=== PATIENT | male | born 1950 | race Caucasian/White ===

== ENCOUNTER → 2017-07-21 | Outpatient (CLI) | payer OTHER | END | disposition home or self-care (01) | LOC: LAB 23:04 | DX: Z02.83 Encounter for blood-alcohol and blood-drug test (principal) | CPT/HCPCS: 36415 ==

== ENCOUNTER → 2017-12-10 | Outpatient (CLI) | payer OTHER ==
--- NOTE | 2017-12-10 11:30 | CARD ---
MR#: [id number] Date of Study: 12/10/2017 Ordering Physician: MENG KENNEDY, Referring Physician: MENG KENNEDY, Tech: Giovanna Bauer APPROVED REPORT EXAM: Two-dimensional and M-mode echocardiogram with Doppler and color Doppler. Other Information Quality : AverageHR: 52bpm Rhythm : NSR INDICATION Murmur RISK FACTORS Hyperlipidemia Previous smoker 2D DIMENSIONS RVDd3.1 (2.9-3.5cm)Left Atrium(2D)3.7 (1.6-4.0cm) IVSd0.9 (0.7-1.1cm)Aortic Root(2D)3.9 (2.0-3.7cm) LVDd5.8 (3.9-5.9cm)LVOT Diameter2.4 (1.8-2.4cm) PWd1.2 (0.7-1.1cm)LVDs4.1 (2.5-4.0cm) FS (%) 29.0 %SV91.6 ml LVEF(%)55.0 (>50%) Aortic Valve AoV Peak Jagdish.121.2cm/sAoV VTI27.6cm AO Peak GR.4.8mmHgLVOT Peak Jagdish.91.3cm/s AO Mean GR.3mmHgAVA (VMAX)3.39cm2 Mitral Valve MV E Lhmqppkm75.0cm/sMV DECEL FQGA620pz MV A Entpqdzx98.4cm/sE/A Ratio0.8 Pulmonary Valve PV Peak Tknemtgr75.3cm/s Tricuspid Valve TR P. Kxhqhcwb361me/sTR Peak Gr.26mmHg Pulmonary Vein S1 Hgurgfqn77.1cm/sD2 Mhuxuypf01.5cm/s PVa doqfyiql411aohv LEFT VENTRICLE The left ventricle is normal size. There is normal left ventricular wall thickness. The left ventricu lar systolic function is normal and the ejection fraction is within normal range. The Ejection Fracti on is 50-55%. There is normal LV segmental wall motion. Transmitral Doppler flow pattern is Grade I-a bnormal relaxation pattern. RIGHT VENTRICLE The right ventricle is normal size. There is normal right ventricular wall thickness. The right ventr icular systolic function is normal. ATRIA The left atrium size is normal. The right atrium size is normal. The interatrial septum is intact wit h no evidence for an atrial septal defect or patent foramen ovale as noted on 2-D or Doppler imaging. AORTIC VALVE The aortic valve is normal in structure and function. Doppler and Color Flow revealed no significant aortic regurgitation. There is no significant aortic valvular stenosis. MITRAL VALVE The mitral valve is thickened but opens well. There is no mitral valve stenosis. Doppler and Color-fl ow revealed trace mitral regurgitation. TRICUSPID VALVE The tricuspid valve is normal in structure and function. Doppler and Color Flow revealed no tricuspid valve regurgitation noted. PULMONIC VALVE The pulmonic valve is not well visualized. Doppler and Color Flow revealed trace pulmonic valvular re gurgitation. GREAT VESSELS The aortic root is normal in size. Normal pulmonary venous flow (Doppler). The IVC is normal in size and collapses >50% with inspiration. PERICARDIAL EFFUSION There is no evidence of significant pericardial effusion. Critical Notification Critical Value: No <Conclusion> The left ventricle is normal size. The left ventricular systolic function is normal and the ejection fraction is within normal range. The Ejection Fraction is 50-55%. There is no significant aortic valvular stenosis. Doppler and Color Flow revealed no significant aortic regurgitation. Doppler and Color-flow revealed trace mitral regurgitation. Doppler and Color Flow revealed no tricuspid valve regurgitation noted. Signed by : Meng Kennedy MD Electronically Approved : 12/10/2017 11:29:23
== END | disposition home or self-care (01) ==
LOC: ECHO 10:08
PROVIDERS: ATTEND Internal Medicine Cardiovascular Disease
DX: Z01.818 Encounter for other preprocedural examination (principal); R01.1 Cardiac murmur, unspecified; E78.5 Hyperlipidemia, unspecified; Z87.891 Personal history of nicotine dependence
CPT/HCPCS: 93306

== ENCOUNTER → 2019-08-18 | Outpatient (CLI) | payer MEDICARE ==
[~2019-08-18] MED LIST: ASPI-630 PO; ATOR10TA60 PO; FAMO20TA5 PO
== END ==
LOC: LAB 14:03
PROVIDERS: ATTEND Surgery
DX: Z01.818 Encounter for other preprocedural examination (principal); Z11.59 Encounter for screening for other viral diseases; L72.3 Sebaceous cyst
CPT/HCPCS: 36415; U0003

== ENCOUNTER → 2019-08-24 | Day surgery (SDC) | payer MEDICARE ==
[~2019-08-24] MED LIST changes: +LIDOCAINE 1%/EPI 1:100,000 20 ML VIAL. INJ ONE
[2019-08-24 08:23] VITALS: BP 127/79
--- NOTE | 2019-08-24 09:30 | PDOC4 ---
Operative Note Operative Note Date: 08/24/2019 at 9:22 AM Preoperative diagnosis: Subcutaneous mass of the back x3 Postoperative diagnosis: Same Procedure: Excision of masses Surgeon: Frandy Specimen: Masses of the back x3 Dictation: Patient is a 68-year-old male who is had numerous sebaceous cyst removed off of his back he comes in today with 3 that are bothering him that are getting larger and sometimes painful. All of these are about 2 x 2 cm one in the center mid back one in the mid right back and one in the upper right back. Procedure of excision was explained to the patient detail was benefits were also discussed including bleeding infection alternatives to this procedure also discussed with the patient who seemed to understand and gave both verbal and written consent to have the procedure performed. Patient was placed in a sitting position with a table to lean on his back was prepped and draped usual sterile fashion using ChloraPrep the first mass was injected with 1% lidocaine with epinephrine elliptical incision was made is carried down through the subcutaneous tissue excising the mass which again was about 2 x 2 cm the mass was sent for pathology the wound was closed in a single layer of 4-0 subcuticular Monocryl Shira mass was excised in a similar fashion and as well as the third mass again both of these masses were 2 x 2 cm and the wounds were closed with a running 4-0 subcuticular Monocryl. Mastisol Steri-Strips and island dressings were applied. Patient tolerated procedure well was discharged home in stable condition all sponge instrument needle counts listed as correct estimated blood loss 10 mL JEANMARIE RIZO MD Aug 24, 2019 09:30
--- NOTE | 2019-08-24 09:32 | DISCH ---
DISCHARGE INSTRUCTIONS Condition on Discharge Condition on Discharge: Stable Activity After Discharge Activity Instructions for Disc: No restrictions Other activity instructions: May shower in 24 hours Diet after Discharge Diet after Discharge: Regular Wound Incision Care Other wound/incision instructi: May shower in 24 hours Contacting the after DC Call your doctor for: If your condition worsens Follow-Up Follow up with: Dr. Rioz in 2 weeks JEANMARIE RIZO MD Aug 24, 2019 09:32
--- NOTE | 2019-08-25 18:06 | PATHOLOGY ---
[facility] Accession Number: [id number] . 01 Material submitted: . PART A: back - CENTER BACK PART B: back - RIGHT BACK. Modifiers: right PART C: back - UPPER BACK. Modifiers: upper . 01 Clinical history: . Back cyst x3 . 02 Diagnosis: A. Skin and subcutaneous tissue, center back: - Epidermal inclusion cyst. . B. Skin and subcutaneous tissue, right back: - Epidermal inclusion cyst. . C. Skin and subcutaneous tissue, upper back: - Epidermal inclusion cyst. . ([facility]:mm; 08/25/2019) [facility] 08/25/2019 1552 Local . 02 Comment: There is no evidence of malignancy. . ([facility]:mml; 08/25/2019) . 02 Electronically signed: . Theo Carter MD, Pathologist NPI- [id number] . 01 Gross description: . A. Received in formalin labeled "Balbina Knott, center back" is an unoriented ellipse of renner-white skin measuring 3.2 x by 1.4 x 1.3 cm. The specimen is sectioned to reveal two renner-white sebaceous cysts measuring 0.5 and 1.0 cm in greatest dimension. Social Contact Worker sections are submitted in A1. . B. Received in formalin labeled "Ashely Knotte, right back" is an unoriented ellipse of renner-white skin and underlying soft tissue measuring entirely 2.7 x 2.1 x 2.0 cm. The deep surface displays a previously opened renner-white cystic structure measuring 1.5 cm in greatest dimension. The skin ellipse measures 2.7 x 0.8 x 0.4 cm. Upon sectioning, the cyst contains renner-white sebaceous material. Social Contact Worker sections are submitted in cassette B1. . C. Received in formalin labeled "Balbina Knott, upper back" is a fragmented renner-white cystic structure received in two pieces, measuring entirely 2.6 x 2.2 x 1.5 cm. One of the pieces displays an attached renner-white skin ellipse measuring 2.2 x 0.8 x 0.4 cm. Upon sectioning, the cyst contains renner-white sebaceous material. Social Contact Worker sections are submitted in cassette C1. ([facility] [place]; 08/24/2019) [facility] 08/24/2019 1715 Local . 02 Pathologist provided ICD-10: L72.0 . 02 CPT . 592238, [id number], [id number] Specimen Comment: A courtesy copy of this report has been sent to [phone], [phone] Specimen Comment: [id number] Specimen Comment: Report sent to / DR VARGAS Performed at: 01 [facility] [address], [place] [id number] MD Johnathon Cherry MD Phone: [phone] Performed at: 02 [facility] [address] [place], [place] [id number] MD Theo Carter MD Phone: [phone]
== END | disposition home or self-care (01) ==
LOC: SURG 07:57
PROVIDERS: ATTEND Surgery
DX: L72.0 Epidermal cyst (principal); Z79.82 Long term (current) use of aspirin; Z79.899 Other long term (current) drug therapy
CPT/HCPCS: 11402; 88304; J3490

== ENCOUNTER → 2021-02-21 | Outpatient (CLI) | payer MEDICARE ==
[2019-08-24 08:23] VITALS: BP 127/79
[~2021-02-21] MED LIST changes: -LIDOCAINE 1%/EPI 1:100,000 20 ML VIAL. INJ ONE
--- NOTE | 2021-02-21 15:59 | KCIC ---
EXAM: CT CHEST WITHOUT CONTRAST (LDCT LUNG CANCER SCREENING). HISTORY: Risk factors for pulmonary malignancy. 50 pack-year history of smoking. TECHNIQUE: CT of the chest was performed without intravenous contrast using a low-dose lung screening protocol. Findings analysis is based on ACR Lung-RADS v1.1. *One or more of the following individual ized dose reduction techniques were utilized for this examination: 1. Automated exposure control. 2. Adjustment of the mA and/or kV according to patient size. 3. Use of iterative reconstruction technique. Comparison study: None FINDINGS: No concerning pulmonary nodules are identified. No acute focal infiltrate, pneumothorax, or effusion is seen. Heart size is normal. Evidence of prior granulomatous disease noted. Upper abdomen osseous structures demonstrate no acute lesions. IMPRESSION/RECOMMENDATION: 1. ACR Lung-RADS category: 1 2. Continue annual screening with LDCT in 12 months. Electronically signed by: Clive German MD (02/21/2021 3:57 PM) [id number]
== END ==
LOC: KCIC CT 10:39
PROVIDERS: ATTEND Family Medicine
DX: Z12.2 Encounter for screening for malignant neoplasm of respiratory organs (principal); F17.210 Nicotine dependence, cigarettes, uncomplicated
CPT/HCPCS: 71271